=== PATIENT | female | born 1970 | race Caucasian/White ===

== ENCOUNTER → 2017-10-09 | Outpatient (CLI) | payer MEDICARE ==
[~2017-10-09] MED LIST: LORTAB 5/500 501 TAB PO; PERCOCET 325 MG1 TA2 PO
== END ==
LOC: MHCPAIN 08:39
DX: G89.29 Other chronic pain (principal); M50.10 Cervical disc disorder with radiculopathy, unspecified cervical region; F17.210 Nicotine dependence, cigarettes, uncomplicated
CPT/HCPCS: G0463

== ENCOUNTER → 2017-11-01 | Outpatient (CLI) | payer MEDICARE | LOC: MHCPAIN 07:39 | DX: Z53.8 Procedure and treatment not carried out for other reasons (principal) ==

== ENCOUNTER → 2017-11-15 | Outpatient (CLI) | payer MEDICARE | LOC: MHCPAIN 07:29 | DX: M50.322 Other cervical disc degeneration at C5-C6 level (principal) | CPT/HCPCS: J1100; J2250; J3010; Q9967 ==

== ENCOUNTER → 2020-10-18 | Outpatient (CLI) | payer MEDICARE, MEDICAID ==
[~2020-10-18] MED LIST changes: +ASPIRIN E.C. 8181 MG PO; +LIPITOR20 MG PO; +NITROSTAT0.3 MG SL; -PERCOCET 325 MG1 TA2 PO; +PERCOCET 325 MG1 TAB PO
== END ==
LOC: COL.LAB 10:14
DX: Z20.822 Contact with and (suspected) exposure to COVID-19 (principal)

== ENCOUNTER 2020-10-20 06:31 | Day surgery (SDC) | payer MEDICARE, MEDICAID ==
[2020-10-20] VITALS (68 sets, daily range): BP systolic 128–158; BP diastolic 68–91; PULSE 61–87; TEMP 98.2; O2SAT 87–98
[~2020-10-20] VITALS: Ht 152.4 cm; Wt 69.9 kg
[~2020-10-20 06:31] MED LIST changes: -ASPIRIN E.C. 8181 MG PO; -LIPITOR20 MG PO; -NITROSTAT0.3 MG SL
[2020-10-20 07:56] LABS: HEMOGLOBIN 14.1 g/dl (12.5-16.0); MEAN CELL VOLUME 97 fl (80.0-100.0); MEAN CORPUSCULAR HEMOGLOBIN 32 pg (27.0-31.0); MEAN CORPUSCULAR HGB CONC 33 g/dl (33.0-37.0); MEAN PLATELET VOLUME 9.5 fl (7.4-10.4); PLATELET COUNT 307 K/mm3 (130-400); RED BLOOD COUNT 4.42 M/mm3 (4.10-5.30); REDCELL DISTRIBUTION WIDTH-CV 12.2 % (11.5-14.5)
[2020-10-20 07:57] LABS: INR 0.9 (0.8-3.0); PROTHROMBIN TIME 9.7 SECONDS (9.7-12.8)
[2020-10-20 08:00] LABS: PARTIAL THROMBOPLASTIN TIME 31.4 SECONDS (26.0-37.0)
[2020-10-20 08:04] LABS: CALCIUM 8.9 mg/dL (8.4-10.2); CREATININE, serum 0.52 (0.52-1.25); POTASSIUM 4.5 mmol/L (3.4-5.0)
--- NOTE | 2020-10-20 08:10 | NUR ---
No HCG collected.Per pt report she has had partial hysterectomy.
--- NOTE | 2020-10-20 08:25 | NUR ---
Pt to procedure.
--- NOTE | 2020-10-20 08:30 | NUR ---
SEE MERGE FOR ALL MEDICATION ADMINISTRATION TIMES, INTRA AND POST SEDATION ASSESSMENT
[2020-10-20] MEDS ORDERED: ASPIRIN E.C. 8181 MG PO (09:50)
[2020-10-20] MEDS ORDERED: LIPITOR20 MG PO (09:51)
[2020-10-20] MEDS ORDERED: NITROSTAT0.3 MG SL (09:51)
--- NOTE | 2020-10-20 13:15 | NUR ---
Discharge instructions given to pt.Pt verbalizes understanding.INT removed,catheter tip intact.Right radial site observed clean,dry,intact.Pt escorted out via wheelchair by this nurse.
== END 2020-10-20 14:32 | disposition home or self-care (01) ==
LOC: COL.CAR 06:31
PROVIDERS: Internal Medicine Cardiovascular Disease
DX: I25.119 Atherosclerotic heart disease of native coronary artery with unspecified angina pectoris (principal); I99.8 Other disorder of circulatory system; I10 Essential (primary) hypertension; E78.5 Hyperlipidemia, unspecified; F41.9 Anxiety disorder, unspecified; F17.200 Nicotine dependence, unspecified, uncomplicated; Z79.82 Long term (current) use of aspirin; Z79.899 Other long term (current) drug therapy; Z88.8 Allergy status to other drugs, medicaments and biological substances
CPT/HCPCS: J1644; J2250; J3010; J7030